=== PATIENT | female | born 1935 | race Two or more races ===

== ENCOUNTER 2017-06-30 13:41 | Inpatient (IN) | payer OTHER, MEDICAID ==
[~2017-06-30] VITALS: Ht 152.4 cm; Wt 66.8 kg
[2017-06-30 16:46] LABS: Urine Specific Gravity 1.023 (1.001-1.035)
[2017-06-30 16:47] LABS: Urine Blood Negative /uL (Negative)
[2017-06-30 17:27] LABS: Urine WBC 100 /hpf (0 - 5)
[2017-06-30 17:28] LABS: Urine Bacteria 2+ /hpf (None Seen); Urine Mucus FEW (None Seen)
[2017-06-30] MEDS ORDERED: SODIUM CHLORIDE 0.9% 500 ML IVB ONE (18:41)
[2017-06-30] MEDS ORDERED: ONDANSETRON HCL 4 MG/2 ML VIAL IV ONE (18:45)
[2017-06-30 19:04] LABS: Basophils # (auto) 0 uL; Basophils % (auto) 0.2 % (0.0-2.0); Eosinophils # (auto) 0 uL; Eosinophils % (auto) 0.4 % (0.0-7.0); Hemoglobin 14.4 g/dL (12.2-16.2); Lymphocytes # (auto) 1.4 uL; Lymphocytes % (auto) 13.6 % (10.0-50.0); Mean Corpuscular Hemoglobin 32.9 pg (28.0-32.0); Mean Corpuscular Hgb Conc. 35.9 g/dL (32.0-36.0); Mean Corpuscular Volume 91.5 fL (80.0-100.0); Monocytes # (auto) 0.7 uL; Monocytes % (auto) 6.9 % (0.0-12.0); Neutrophils # (auto) 8.1 uL; Neutrophils % (auto) 78.9 % (37.0-80.0); Nucleated Red Blood Cells % 0.1 %; Platelet Count (auto) 353 10^3/uL (140-450); Red Blood Cells 4.37 10^6/uL (4.0-5.20); Red Cell Distribution Width 13.9 % (11.8-14.3); White Blood Cell 10.3 10^3/uL (4.4-10.8)
[2017-06-30 19:17] LABS: INR 0.98 (0.9-1.15); Partial Thromboplastin Time 30.2 sec (22.64-33.71); Prothrombin Time 10.7 sec (9.37-12.3)
[2017-06-30 19:25] LABS: Alanine Aminotransferase 34 U/L (13-56); Albumin 3.9 g/dL (3.4-5.0); Alkaline Phosphatase 54 U/L (45-117); Amylase 47 U/L (25-115); Anion Gap 12 (5-15); Aspartate Aminotransferase 43 U/L (15-37); BUN/Creatinine Ratio 13.2; Bilirubin, Total 0.8 mg/dL (0.2-1.0); Blood Urea Nitrogen 9 mg/dL (7-18); Calcium 7.9 mg/dL (8.5-10.1); Carbon Dioxide 24 mmol/L (21-32); Chloride 76 mmol/L (98-107); GFR African American 106 mL/min; GFR Non-African American 88 mL/min; Glucose 126 mg/dL (74-106); Lipase 201 U/L (73-393); Magnesium 1.9 mg/dL (1.6-2.6); Potassium 3.4 mmol/L (3.5-5.1); Total Protein 7.1 g/dL (6.4-8.2)
[2017-06-30 19:28] LABS: Sodium 112 mmol/L (136-145)
[2017-06-30] MEDS ORDERED: SODIUM CHL 3% 500 ML IV ONE (20:45)
[2017-06-30] MEDS ORDERED: cefTRIAXone 1GM/10ml IVPUSH 10 ML IV ONE (21:15)
[2017-06-30] MEDS ORDERED: POTASSIUM CHL 20 Meq TABLET PO ONE (22:45)
[2017-06-30] MEDS ORDERED: MORPHINE SULF INJ 2 MG/ML SYRINGE 1ML IV PRN (22:45)
[2017-06-30] MEDS ORDERED: NITROGLYCERIN 0.4 MG SL TAB SL PRN (22:45)
[2017-06-30] MEDS ORDERED: ACETAMINOPHEN 500 MG TAB PO PRN ×2 (22:45)
[2017-06-30] MEDS ORDERED: ONDANSETRON HCL 4 MG/2 ML VIAL IV PRN (22:45)
[2017-06-30] MEDS ORDERED: DEXTROSE (50%) 50ML SYRG IV PRN (22:45)
[2017-07-01 05:33] LABS: Basophils # (auto) 0 uL; Basophils % (auto) 0.1 % (0.0-2.0); Eosinophils # (auto) 0.1 uL; Hematocrit 38.4 % (36.0-46.0); Hemoglobin 13.5 g/dL (12.2-16.2); Lymphocytes # (auto) 1.3 uL; Lymphocytes % (auto) 15.3 % (10.0-50.0); Mean Corpuscular Hemoglobin 32.9 pg (28.0-32.0); Mean Corpuscular Hgb Conc. 35.3 g/dL (32.0-36.0); Mean Corpuscular Volume 93.3 fL (80.0-100.0); Monocytes # (auto) 0.9 uL; Monocytes % (auto) 10.4 % (0.0-12.0); Neutrophils # (auto) 6.3 uL; Neutrophils % (auto) 73.2 % (37.0-80.0); Nucleated Red Blood Cells % 0.1 %; Platelet Count (auto) 309 10^3/uL (140-450); Red Blood Cells 4.11 10^6/uL (4.0-5.20); Red Cell Distribution Width 13.5 % (11.8-14.3); White Blood Cell 8.6 10^3/uL (4.4-10.8)
[2017-07-01 05:48] LABS: BUN/Creatinine Ratio 14.6; Calcium 7.4 mg/dL (8.5-10.1); Potassium 3.5 mmol/L (3.5-5.1)
[2017-07-01] MEDS: InsuLIN REG 1unit/0.01ml Soln (100units/ml) SC SCH ×4 (06:14→22:00)
[2017-07-01] MEDS: ACCU-CHEK COMFORT CURVE STRIP VI SCH ×3 (06:14→17:12)
[2017-07-01] MEDS: LEVOTHYROXINE SODIUM 100 MCG TAB PO SCH (07:11)
[2017-07-01] MEDS: LOSARTAN POTASSIUM 50 MG TAB PO SCH (10:43)
[2017-07-01] MEDS: FAMOTIDINE 20 MG TAB PO SCH (10:44)
[2017-07-01 12:17] LABS: Albumin 3.4 g/dL (3.4-5.0); BUN/Creatinine Ratio 11.3; Bilirubin, Total 0.6 mg/dL (0.2-1.0); Calcium 7.4 mg/dL (8.5-10.1); Potassium 3.5 mmol/L (3.5-5.1); Total Protein 6.2 g/dL (6.4-8.2)
[2017-07-01 15:55] LABS: Albumin 3.3 g/dL (3.4-5.0); BUN/Creatinine Ratio 8.3; Bilirubin, Total 0.6 mg/dL (0.2-1.0); Calcium 7.3 mg/dL (8.5-10.1); Potassium 3.5 mmol/L (3.5-5.1)
[2017-07-01 19:15] LABS: Albumin 3.2 g/dL (3.4-5.0); BUN/Creatinine Ratio 9.3; Bilirubin, Total 0.6 mg/dL (0.2-1.0); Calcium 7.5 mg/dL (8.5-10.1); Potassium 3.4 mmol/L (3.5-5.1)
[2017-07-01] MEDS: SODIUM CHLORIDE 0.9% 1,000 ML IV SCH (21:00)
[2017-07-01 21:10] VITALS: BP 128/64
[2017-07-01 21:30] VITALS: BP 128/64
[2017-07-02] VITALS (7 sets, daily range): BP systolic 111–146; BP diastolic 57–80
[2017-07-02] MEDS: ACCU-CHEK COMFORT CURVE STRIP VI SCH ×3 (00:04→11:30)
[2017-07-02] MEDS: SODIUM CHLORIDE 0.9% 1,000 ML IV SCH ×2 (00:50→12:00)
[2017-07-02 01:05] LABS: Albumin 3.2 g/dL (3.4-5.0); BUN/Creatinine Ratio 6.5; Calcium 7.7 mg/dL (8.5-10.1)
[2017-07-02 01:07] LABS: Bilirubin, Total 0.5 mg/dL (0.2-1.0); Total Protein 6.1 g/dL (6.4-8.2)
[2017-07-02 06:13] LABS: Albumin 3.1 g/dL (3.4-5.0); Calcium 7.4 mg/dL (8.5-10.1); Potassium 3.6 mmol/L (3.5-5.1)
[2017-07-02 06:15] LABS: BUN/Creatinine Ratio 6.4
[2017-07-02 06:18] LABS: Bilirubin, Total 0.5 mg/dL (0.2-1.0); Total Protein 5.9 g/dL (6.4-8.2)
[2017-07-02] MEDS: LEVOTHYROXINE SODIUM 100 MCG TAB PO SCH (06:48)
[2017-07-02] MEDS: InsuLIN REG 1unit/0.01ml Soln (100units/ml) SC SCH ×2 (06:54→11:30)
[2017-07-02] MEDS: LOSARTAN POTASSIUM 50 MG TAB PO SCH (10:01)
[2017-07-02] MEDS: FAMOTIDINE 20 MG TAB PO SCH (10:01)
[2017-07-02 10:45] LABS: Albumin 3.2 g/dL (3.4-5.0); BUN/Creatinine Ratio 5.4; Bilirubin, Total 0.4 mg/dL (0.2-1.0); Calcium 7.3 mg/dL (8.5-10.1); Potassium 3.7 mmol/L (3.5-5.1)
[2017-07-02] MEDS ORDERED: LEV100T PO (11:53)
[2017-07-02] MEDS ORDERED: GLIP-115 PO (11:55)
[2017-07-02] MEDS ORDERED: CHOL20007 PO (11:55)
[2017-07-02] MEDS ORDERED: SIMV-8 PO (12:00)
[2017-07-02] MEDS ORDERED: SERT-274 PO (12:00)
[2017-07-02] MEDS ORDERED: TRAZ50TA2 PO (12:00)
[2017-07-02] MEDS ORDERED: LOSA50TA6 PO (12:00)
[2017-07-02] MEDS ORDERED: cefTRIAXone 1GM/10ml IVPUSH 10 ML IV ONE (12:30)
[2017-07-02 12:48] LABS: Albumin 3.1 g/dL (3.4-5.0); BUN/Creatinine Ratio 5.3; Calcium 7.4 mg/dL (8.5-10.1); Potassium 3.5 mmol/L (3.5-5.1)
[2017-07-02 12:51] LABS: Bilirubin, Total 0.4 mg/dL (0.2-1.0)
[2017-07-02] MEDS ORDERED: glipiZIDE 5 MG TAB PO ONE ×2 (13:00)
[2017-07-02] MEDS ORDERED: SERTRALINE HCL 50 MG TAB PO ONE (13:00)
[2017-07-02 14:21] LABS: Free T3 0.8 pg/mL (2.3-4.2); Free T4 (Free Thyroxine) 0.62 ng/dL (0.89-1.76)
[2017-07-02] MEDS: LEVOTHYROXINE SODIUM 100 MCG/5 ML INJ IV ONE ×2 (14:43→15:01)
[2017-07-02] MEDS: ENOXAPARIN SOD 40 MG/0.4 ML SYRINGE SC SCH (15:01)
[2017-07-02] MEDS: DOCUSATE SOD 100 MG CAP PO SCH (21:59)
[2017-07-02] MEDS: traZODone HCL 50 MG TAB PO SCH (21:59)
[2017-07-03 05:58] LABS: Albumin 2.7 g/dL (3.4-5.0); BUN/Creatinine Ratio 4.4; Bilirubin, Total 0.5 mg/dL (0.2-1.0); Potassium 3.3 mmol/L (3.5-5.1)
[2017-07-03] MEDS: glipiZIDE 5 MG TAB PO SCH ×2 (07:00→07:04)
[2017-07-03] MEDS: SODIUM CHLORIDE 0.9% 1,000 ML IV SCH (07:01)
[2017-07-03 07:30] VITALS: BP 151/79
[2017-07-03] MEDS ORDERED: POTASSIUM CHL 20 Meq TABLET PO ONE (08:30)
[2017-07-03] MEDS: cefTRIAXone 1GM/10ml IVPUSH 10 ML IV SCH (09:55)
[2017-07-03] MEDS: LEVOTHYROXINE SODIUM 100 MCG/5 ML INJ IV SCH (09:56)
[2017-07-03] MEDS: ENOXAPARIN SOD 40 MG/0.4 ML SYRINGE SC SCH (09:56)
[2017-07-03] MEDS: LOSARTAN POTASSIUM 50 MG TAB PO SCH (10:26)
[2017-07-03] MEDS: SERTRALINE HCL 50 MG TAB PO SCH (10:26)
[2017-07-03] MEDS: DOCUSATE SOD 100 MG CAP PO SCH ×2 (10:26→21:43)
[2017-07-03] MEDS: FAMOTIDINE 20 MG TAB PO SCH (10:26)
[2017-07-03] MEDS: CHOLECALCIFEROL (VITD3) 1,000 UNIT TAB PO SCH (10:27)
[2017-07-03 11:50] VITALS: BP 143/66
[2017-07-03 15:50] VITALS: BP 141/67
[2017-07-03] MEDS: traZODone HCL 50 MG TAB PO SCH (21:43)
[2017-07-03 23:56] VITALS: BP 130/68
[2017-07-04 05:00] VITALS: BP 149/60
[2017-07-04] MEDS: glipiZIDE 5 MG TAB PO SCH (05:34)
[2017-07-04 06:53] LABS: BUN/Creatinine Ratio 3.6; Calcium 7.8 mg/dL (8.5-10.1); Potassium 3.2 mmol/L (3.5-5.1)
[2017-07-04 08:00] VITALS: BP 158/72
[2017-07-04 09:00] VITALS: BP 141/75
[2017-07-04] MEDS: LEVOTHYROXINE SODIUM 100 MCG/5 ML INJ IV SCH (09:24)
[2017-07-04] MEDS: LOSARTAN POTASSIUM 50 MG TAB PO SCH (09:25)
[2017-07-04] MEDS: CHOLECALCIFEROL (VITD3) 1,000 UNIT TAB PO SCH (09:25)
[2017-07-04] MEDS: SERTRALINE HCL 50 MG TAB PO SCH (09:26)
[2017-07-04] MEDS: ENOXAPARIN SOD 40 MG/0.4 ML SYRINGE SC SCH (09:27)
[2017-07-04] MEDS: cefTRIAXone 1GM/10ml IVPUSH 10 ML IV SCH (09:27)
[2017-07-04] MEDS: FAMOTIDINE 20 MG TAB PO SCH (09:27)
[2017-07-04] MEDS: DOCUSATE SOD 100 MG CAP PO SCH ×2 (09:27→22:35)
[2017-07-04 13:00] VITALS: BP 129/59
[2017-07-04 16:20] VITALS: BP 124/68
[2017-07-04 22:00] VITALS: BP 142/74
[2017-07-04] MEDS: traZODone HCL 50 MG TAB PO SCH (22:35)
[2017-07-05 05:00] VITALS: BP 154/46
[2017-07-05] MEDS: glipiZIDE 5 MG TAB PO SCH (06:42)
[2017-07-05 07:38] LABS: BUN/Creatinine Ratio 2.9; Potassium 3.7 mmol/L (3.5-5.1)
[2017-07-05 09:22] VITALS: BP 166/65
[2017-07-05] MEDS ORDERED: SODIUM CHL 3% 500 ML IV ONE (09:45)
[2017-07-05] MEDS: cefTRIAXone 1GM/10ml IVPUSH 10 ML IV SCH (10:28)
[2017-07-05] MEDS: CHOLECALCIFEROL (VITD3) 1,000 UNIT TAB PO SCH (10:28)
[2017-07-05] MEDS: LEVOTHYROXINE SODIUM 100 MCG/5 ML INJ IV SCH (10:28)
[2017-07-05] MEDS: DOCUSATE SOD 100 MG CAP PO SCH ×2 (10:28→22:42)
[2017-07-05] MEDS: SERTRALINE HCL 50 MG TAB PO SCH (10:29)
[2017-07-05] MEDS: LOSARTAN POTASSIUM 50 MG TAB PO SCH (10:29)
[2017-07-05] MEDS: FAMOTIDINE 20 MG TAB PO SCH (10:29)
[2017-07-05] MEDS: ENOXAPARIN SOD 40 MG/0.4 ML SYRINGE SC SCH (10:29)
[2017-07-05] MEDS ORDERED: SODIUM CHL 3% 300 ML IV ONE (10:30)
[2017-07-05 13:00] VITALS: BP 128/65
[2017-07-05 17:00] VITALS: BP 139/68
[2017-07-05 22:00] VITALS: BP 134/67
[2017-07-05] MEDS: traZODone HCL 50 MG TAB PO SCH (22:42)
[2017-07-06 05:41] VITALS: BP 147/71
[2017-07-06] MEDS: glipiZIDE 5 MG TAB PO SCH (06:51)
[2017-07-06 09:00] VITALS: BP 145/73
[2017-07-06] MEDS ORDERED: LEVO125T7 PO (09:21)
[2017-07-06] MEDS: DOCUSATE SOD 100 MG CAP PO SCH (09:22)
[2017-07-06] MEDS: FAMOTIDINE 20 MG TAB PO SCH (09:22)
[2017-07-06] MEDS: SERTRALINE HCL 50 MG TAB PO SCH (09:22)
[2017-07-06] MEDS: LEVOTHYROXINE SODIUM 100 MCG/5 ML INJ IV SCH (09:23)
[2017-07-06] MEDS: LOSARTAN POTASSIUM 50 MG TAB PO SCH (09:23)
[2017-07-06] MEDS: ENOXAPARIN SOD 40 MG/0.4 ML SYRINGE SC SCH (09:23)
[2017-07-06] MEDS: CHOLECALCIFEROL (VITD3) 1,000 UNIT TAB PO SCH (09:23)
[2017-07-06] MEDS: cefTRIAXone 1GM/10ml IVPUSH 10 ML IV SCH (09:24)
[2017-07-06] MEDS ORDERED: SODIUM BICARBONATE 650 MG TAB PO ONE (09:30)
[2017-07-06 10:34] VITALS: BP 145/73
[2017-07-06 13:00] VITALS: BP 140/76
[2017-07-06] MEDS ORDERED: SODIUM BICARBONATE 650 MG TAB PO SCH (14:00)
[2017-07-06 17:30] VITALS: BP 156/75
== END 2017-07-06 18:20 | DRG 644 ==
LOC: ER 13:41 → TELE 13:42 → DOU IN ICU 07-01 22:04 → TELE-WESTW 07-03 18:25 → WEST WING 07-04 20:35
PROVIDERS: ADMIT Nurse Practitioner Family; ATTEND Internal Medicine
DX: E03.9 Hypothyroidism, unspecified (principal); E87.1 Hypo-osmolality and hyponatremia; E11.40 Type 2 diabetes mellitus with diabetic neuropathy, unspecified; N39.0 Urinary tract infection, site not specified; K57.30 Diverticulosis of large intestine without perforation or abscess without bleeding; E87.6 Hypokalemia; B96.20 Unspecified Escherichia coli [E. coli] as the cause of diseases classified elsewhere; E66.9 Obesity, unspecified; E78.5 Hyperlipidemia, unspecified; F32.9 Major depressive disorder, single episode, unspecified; I10 Essential (primary) hypertension; K59.00 Constipation, unspecified; Z82.49 Family history of ischemic heart disease and other diseases of the circulatory system; Z79.899 Other long term (current) drug therapy
CPT/HCPCS: 36415; 71046; 74176; 80048; 80053; 81001; 82150; 82306; 82533; 82962; 83036; 83690; 83735; 83930; 83935; 84295; 84439; 84443; 84481; 84484; 85025; 85610; 85730; 87081; 87086; 87088; 87186; 93005; 94761; 96374; 96375; 97116; 97163; 97530; J1815; J2405; J3490